=== PATIENT | male | born 1950 | race African-American/Black ===

== ENCOUNTER → 2016-06-19 | Outpatient (CLI) | payer MEDICARE, MEDICAID ==
[~2016-06-19] MED LIST: ALBU8I INH; ALBUAER3 INH; AZIT250T3 PO; BENZ100 PO; BENZ1TAB PO; CELE20TA PO; CITA20 PO; COUG100S2 PO; LEVA500T33 PO; PRED-503 PO; PRED10PA PO; PRED5TAB PO; QUET300 PO; SERO300T PO
[2016-06-19 12:14] LABS: HEMATOCRIT 45.2 % (39.0-51.0); MEAN CELL VOLUME 106.4 FL (80.0-100.0); MEAN CORPUSCULAR HEMOGLOBIN 36.7 PG (27.0-34.0); MEAN CORPUSCULAR HGB CONC 34.5 % (32.0-36.0); PLATELET COUNT 289 TH/MM3 (150-450); RED BLOOD COUNT 4.25 MIL/MM3 (4.50-5.90); RED CELL DISTRIBUTION WIDTH 14.6 % (11.6-17.2); REVIEW FLAG FINAL; WHITE BLOOD COUNT 6.6 TH/MM3 (4.0-11.0)
[2016-06-19 12:38] LABS: ANION GAP 6 MEQ/L (5-15); BICARBONATE 25.2 MEQ/L (21.0-32.0); BLOOD UREA NITROGEN 11 MG/DL (7-18); CHLORIDE 110 MEQ/L (98-107); GLOMERULAR FILTRATION RATE 68 ML/MIN (>89); GLUCOSE,FASTING 96 MG/DL (74-99); SODIUM (NA) 141 MEQ/L (136-145)
[2016-06-19 12:47] LABS: HDL CHOLESTEROL 48.1 MG/DL (40.0-60.0); LDL CHOLESTEROL 149 MG/DL (0-99)
[2016-06-19 12:59] LABS: HEMOGLOBIN A1a 1.1 %; HEMOGLOBIN A1b 0.9 %; HEMOGLOBIN Ao 85.2 %; HEMOGLOBIN F 1.3 %; HEMOGLOBIN P3 3.4 %
== END ==
LOC: CLAB 11:39
DX: E03.9 Hypothyroidism, unspecified (principal); D64.9 Anemia, unspecified; R97.20 Elevated prostate specific antigen [PSA]; E11.9 Type 2 diabetes mellitus without complications; E78.5 Hyperlipidemia, unspecified; Z13.228 Encounter for screening for other metabolic disorders; Z12.5 Encounter for screening for malignant neoplasm of prostate
CPT/HCPCS: 36415; 80048; 80061; 83036; 84443; 85027; G0103

== ENCOUNTER 2016-08-18 14:32 | Emergency (ER) | payer MEDICARE, MEDICAID ==
[~2016-08-18] VITALS: Ht 175.3 cm; Wt 97.5 kg
[~2016-08-18 14:32] MED LIST changes: -ALBUAER3 INH; -AZIT250T3 PO; -BENZ100 PO; -CELE20TA PO; -PRED-503 PO; -PRED10PA PO; -SERO300T PO
[2016-08-18 14:33] VITALS: BP 128/79; PULSE 88; RESP 24; TEMP 98.8; O2SAT 97
[2016-08-18] MEDS ORDERED: SERO300T PO (16:49)
[2016-08-18] MEDS ORDERED: CELE20TA PO (16:49)
[2016-08-18] MEDS ORDERED: BENZ1TAB PO (16:49)
--- NOTE | 2016-08-18 17:09 | PD ---
HPI Chief Complaint: Cold / Flu Symptoms Time Seen by Provider: 17:09 Travel History International Travel<30 days: No Contact w/Intl Traveler<30days: No Traveled to known affect area: No History of Present Illness HPI 65-year-old male presents emergency Department with complaint of subjective fever, cough, nasal congestion since yesterday. Reports hot flashes and chills. Denies ear pain, sore throat. Denies chest pain, shortness of breath. Reports coughing up white phlegm. Denies history of COPD or asthma. Denies wheezing. Has not taken any medications or tried any treatments to alleviate symptoms. No known allergies. No other modifying factors or associated signs and symptoms. PFSH Past Medical History Asthma: No Anxiety: No Depression: No Cancer: No Cardiovascular Problems: No COPD: Yes Diabetes: No Diminished Hearing: No Endocrine: No Genitourinary: No Musculoskeletal: No Neurologic: No Psychiatric: No Respiratory: Yes Schizophrenia: Yes (PARINOID TYPE) Sleep Apnea: No PNEUMOCCOCAL Vaccine (Year): 2 Past Surgical History Tonsillectomy: Yes Social History Alcohol Use: Yes (OCC BEER) Tobacco Use: Yes (1 PPD) Substance Use: No Allergies-Medications (Allergen,Severity, Reaction): Coded Allergies: No Known Allergies (Verified , 08/18/16) Reported Meds & Prescriptions Reported Meds & Active Scripts Active Tessalon Perles (Benzonatate) 100 Mg Cap 100 Mg PO TID PRN Deltasone (Prednisone) 20 Mg Tab 40 Mg PO DAILY 4 Days start 08/19/2016 Proair Hfa 8.5 GM Inh (Albuterol Sulfate) 90 Mcg/Act Aer 2 Puff INH Q4-6H PRN 108 mcg/actuation Reported Celexa (Citalopram Hydrobromide) 20 Mg Tab 20 Mg PO DAILY Seroquel (Quetiapine Fumarate) 300 Mg Tab 300 Mg PO HS Benztropine (Benztropine Mesylate) 1 Mg Tab 1 Mg PO HS Review of Systems Except as stated in HPI: all other systems reviewed are Neg Physical Exam Narrative GENERAL: Well-nourished, well-developed patient, in no acute distress; afebrile , nontoxic-appearing SKIN: Warm and dry. HEAD: Atraumatic. Normocephalic. EYES: Pupils equal and round. No scleral icterus. No injection or drainage. ENT: Mucosa pink and moist. No erythema or exudates. No uvular edema. No uvular , palatal, or tonsillar deviation. Airway patent. Nares without nasal blood, purulent drainage or septal hematoma. EARS: Bilateral pinnae and external canals appear within normal limits. Bilateral tympanic membranes without erythema, dullness or perforation. NECK: Trachea midline. No lymphadenopathy. CARDIOVASCULAR: Regular rate and rhythm. No murmur appreciated. RESPIRATORY: No accessory muscle use. Lungs with Wheezing throughout to auscultation. Breath sounds equal bilaterally. No retractions or tachypnea. No Audible wheezing noted. Consistent moist sounding cough. GASTROINTESTINAL: Abdomen soft, non-tender, nondistended. Hepatic and splenic margins not palpable. Bowel sounds are active 4 quadrants. MUSCULOSKELETAL: No obvious deformities. No clubbing. No cyanosis. No edema. NEUROLOGICAL: Awake and alert. Oriented 3. No obvious cranial nerve deficits. Motor grossly within normal limits. Normal speech. Moves all extremities. 5/5 strength to all extremities. PSYCHIATRIC: Appropriate mood and affect; insight and judgment normal. Data Data Last Documented VS Vital Signs Date Time Temp Pulse Resp B/P Pulse Ox O2 Delivery O2 Flow Rate FiO2 08/18/16 17:38 96 21 08/18/16 14:33 98.8 88 24 128/79 Room Air Orders Chest, Single Ap (08/18/16 17:01) Prednisone (Deltasone) (08/18/16 17:15) Albuterol Neb (Albuterol Neb) (08/18/16 17:15) Influenzae A/B Antigen (08/18/16 17:02) MDM Medical Decision Making Medical Screen Exam Complete: Yes Emergency Medical Condition: Yes Medical Record Reviewed: Yes Differential Diagnosis Bronchitis, influenza, pneumonia Narrative Course 65-year-old male with cough and nasal congestion since yesterday. Lung sounds are with wheezing throughout. The patient is in no acute distress and his oxygen saturation is 96% on room air. He is afebrile and nontoxic-appearing. DuoNeb and prednisone ordered. Chest x-ray ordered. 173: Chest x-ray with no acute pulmonary disease. 175: Patient reports improvement in symptoms after breathing treatment. His lungs are clear and equal throughout. Influenza pending. 180: Influenza negative. Pro-air inhaler, Deltasone, Tessalon Perles prescribed for home. Patient verbalizes understanding and agreement with treatment plan. Patient is medically cleared and stable for discharge. Discussed reasons to return to the emergency department. Instructed patient to follow up with primary care provider. Patient agrees with treatment plan. The patients vital signs are stable and the patient is stable for outpatient follow- up and treatment. Patient discharged home, stable and in no acute distress. Diagnosis Primary Impression: Acute bronchitis Qualified Code: J20.9 - Acute bronchitis, unspecified organism Referrals: Primary Care Physician Patient Instructions: General Instructions Departure Forms: Tests/Procedures Additional Instructions: Use Albuterol inhaler as prescribed Take oral steroids as prescribed and complete full course Use Tessalon Perles as prescribed to decrease coughing spasms [id number] decongestants or antihistamines as directed and as needed for symptom management Your cough can last 4-6 weeks Drink plenty of fluids to prevent dehydration Use hot air humidifier to decrease cough exacerbation Turn off ceiling fans and sleep with head of bed elevated Avoid triggers such as second hand smoke, dust, known allergens Follow-up with your primary care provider Return to the emergency department immediately with worsening of symptoms Med/Other Pt SpecificInfo: Prescription(s) given Scripts Benzonatate (Tessalon Perles)100 Mg [id number] Mg PO TID PRN (COUGH) #20 CAP Ref 0 Prov:Abril Tarango 08/18/16 Prednisone (Deltasone)20 Mg Tab40 Mg PO DAILY 4 Days Ref 0 start 08/19/2016 Prov:Abril Tarango 08/18/16 Albuterol 8.5 GM Inh (Proair Hfa 8.5 GM Inh)90 Mcg/Act Aer2 Puff INH Q4-6H PRN ( SOB/WHEEZING) #1 INHALER Ref 0 108 mcg/actuation Prov:Abril Tarango 08/18/16 Disposition: 01 DISCHARGE HOME Condition: Stable Abril Tarango Aug 18, 2016 17:09
[2016-08-18] MEDS ORDERED: predniSONE 20 MG TAB PO ONE (17:15)
[2016-08-18] MEDS ORDERED: RESP: ALBUTEROL 2.5 MG/3 ML NEB (SCH) INH ONE (17:15)
--- NOTE | 2016-08-18 17:19 | RADRPT ---
EXAM DATE/TIME: 08/18/2016 16:58 [facility] COMPARISON: CHEST SINGLE AP, June 08, 2015, 13:59. INDICATIONS : Cough, congestion MEDICAL HISTORY : Asthma SURGICAL HISTORY : None. ENCOUNTER: Initial ACUITY: 2 days PAIN SCORE: 0/10 LOCATION: Bilateral chest FINDINGS: The lungs are clear without infiltrate, nodule, or mass. There is no appreciable pleural effusion fo r technique. Heart and mediastinum are unremarkable. IMPRESSION: No acute cardiopulmonary disease. Rolly Canales MD on August 18, 2016 at 17:14 Board Certified Radiologist. This report was verified electronically.
[2016-08-18 17:38] VITALS: O2SAT 96
[2016-08-18] MEDS ORDERED: PRED-503 PO (17:45)
[2016-08-18] MEDS ORDERED: ALBUAER3 INH (17:45)
[2016-08-18] MEDS ORDERED: BENZ100 PO (17:45)
== END 2016-08-18 18:16 | disposition home or self-care (01) ==
LOC: NEPK 14:32
DX: J20.9 Acute bronchitis, unspecified (principal); F17.200 Nicotine dependence, unspecified, uncomplicated
CPT/HCPCS: 71010; 87804; 94664; 99283; J7512; J7613

== ENCOUNTER 2016-08-21 20:55 | Emergency (ER) | payer MEDICARE, MEDICAID ==
[~2016-08-21] VITALS: Ht 175.3 cm; Wt 97.0 kg
[~2016-08-21 20:55] MED LIST changes: -ALBU8I INH; +ALBUAER3 INH; +BENZ100 PO; +CELE20TA PO; -CITA20 PO; -COUG100S2 PO; -LEVA500T33 PO; +PRED-503 PO; -PRED5TAB PO; -QUET300 PO; +SERO300T PO
[2016-08-21 20:58] VITALS: BP 135/87; PULSE 91; RESP 18; TEMP 98.7; O2SAT 96
--- NOTE | 2016-08-21 21:27 | PD ---
Physical Exam Time Seen by Provider: 21:23 Narrative 65yo M c/o bronchitis getting worse. Was seen here on the 08/18. Has been taking the steroids, but did not fill the inhaler. Denies chest tightness, chest pain, SOB. C/o "ringing in head." Denies fever. Patient stable. Patient seen in triage. Patient awaiting bed placement. Data Data Last Documented VS Vital Signs Date Time Temp Pulse Resp B/P Pulse Ox O2 Delivery O2 Flow Rate FiO2 08/21/16 20:58 98.7 91 18 135/87 96 Room Air MDM Supervised Visit with JUANITO: Abril Franco Aug 21, 2016 21:27
[2016-08-21] MEDS ORDERED: AZITHROMYCIN 250 MG TAB PO ONE (21:45)
--- NOTE | 2016-08-21 21:46 | PD ---
HPI Chief Complaint: ENT Complaint Time Seen by Provider: 21:40 Travel History International Travel<30 days: No Contact w/Intl Traveler<30days: No Traveled to known affect area: No History of Present Illness HPI This is a 65-year-old male with history of paranoid schizophrenia who presents for evaluation of cough. Symptoms started 4 days ago. Cough is dry, constant. Associated with congestion, sore throat. He was seen here in August 18 and prescribed an albuterol inhaler, Tessalon, prednisone. He had the prednisone filled and he has taken 2 doses of it. He cannot afford the albuterol or the Tessalon. He presents today with the same symptoms. He denies any known history of COPD but he is a long-time smoker. No fevers. No recent travel. No sick contacts. No other complaints. PFSH Past Medical History Asthma: No Anxiety: No Depression: No Cancer: No Cardiovascular Problems: No COPD: Yes Diabetes: No Diminished Hearing: No Endocrine: No Genitourinary: No Musculoskeletal: No Neurologic: No Psychiatric: No Respiratory: Yes Schizophrenia: Yes (PARINOID TYPE) Sleep Apnea: No PNEUMOCCOCAL Vaccine (Year): 2 Past Surgical History Tonsillectomy: Yes Social History Alcohol Use: Yes (OCC BEER) Tobacco Use: Yes (1 PPD) Substance Use: No Allergies-Medications (Allergen,Severity, Reaction): Coded Allergies: No Known Allergies (Verified , 08/18/16) Reported Meds & Prescriptions Reported Meds & Active Scripts Active Prednisone (21) 10 mg tab Dose Pack (Prednisone) 10 Mg Pack 10 Mg PO DIRECTED Azithromycin 250 Mg Tab 250 Mg PO DAILY Tessalon Perles (Benzonatate) 100 Mg Cap 100 Mg PO TID PRN Deltasone (Prednisone) 20 Mg Tab 40 Mg PO DAILY 4 Days start 08/19/2016 Proair Hfa 8.5 GM Inh (Albuterol Sulfate) 90 Mcg/Act Aer 2 Puff INH Q4-6H PRN 108 mcg/actuation Reported Celexa (Citalopram Hydrobromide) 20 Mg Tab 20 Mg PO DAILY Seroquel (Quetiapine Fumarate) 300 Mg Tab 300 Mg PO HS Benztropine (Benztropine Mesylate) 1 Mg Tab 1 Mg PO HS Review of Systems Except as stated in HPI: all other systems reviewed are Neg Physical Exam Narrative GENERAL: Well-developed well-nourished male in no acute distress SKIN: Warm and dry. HEAD: Atraumatic. Normocephalic. EYES: Pupils equal and round. No scleral icterus. No injection or drainage. ENT: No nasal bleeding or discharge. Mucous membranes pink and moist. NECK: Trachea midline. No JVD. CARDIOVASCULAR: Regular rate and rhythm. No murmur appreciated. RESPIRATORY: No accessory muscle use. Audible wheezing bilaterally. No crackles. GASTROINTESTINAL: Abdomen soft, non-tender, nondistended. Hepatic and splenic margins not palpable. MUSCULOSKELETAL: No obvious deformities. No edema. NEUROLOGICAL: Awake and alert. No obvious cranial nerve deficits. Motor grossly within normal limits. Normal speech. PSYCHIATRIC: Appropriate mood and affect; insight and judgment normal. Data Data Last Documented VS Vital Signs Date Time Temp Pulse Resp B/P Pulse Ox O2 Delivery O2 Flow Rate FiO2 08/21/16 20:58 98.7 91 18 135/87 96 Room Air Orders Albuterol-Ipratropium Neb (Duoneb Neb) (08/21/16 21:45) Azithromycin (Zithromax) (08/21/16 21:45) Albuterol Hfa Inh (Proair Hfa Inh) (08/21/16 22:00) Albuterol Hfa Inh (Ventolin Hfa Inh) (08/21/16 22:00) MDM Medical Decision Making Medical Screen Exam Complete: Yes Emergency Medical Condition: Yes Medical Record Reviewed: Yes Differential Diagnosis COPD, reactive airway disease, bronchitis, pneumonia Narrative Course 65-year-old male with persistent wheezing and cough and cold symptoms for the past 4 days. On examination he has wheezing. He is not tachypneic, hypoxic, tachycardic. He is able to ambulate without acute dyspnea. The patient reports that he cannot afford his Tessalon or albuterol inhaler at [facility], he reports that the Tessalon was $35 and the albuterol inhaler was 65. I spoke to the spring encaser informs me that the patient has Medicaid and therefore his medication should be covered. There seems to be a discrepancy in the history. I informed the patient that the Tessalon is on the $4 list at [facility] and albuterol inhaler likely less expensive there is well. We will give the patient lab treatment here as well as an inhaler. I suspect that he may have undiagnosed COPD given his long-standing history of smoking. He will be started on azithromycin, first dose given here. Diagnosis Primary Impression: Acute bronchitis Qualified Code: J20.9 - Acute bronchitis, unspecified organism Additional Instructions: Medication as prescribed. Avoid tobacco products. Follow-up with your primary care physician Dr. Shelton in a few days. Return for any emergent medical conditions. Med/Other Pt SpecificInfo: Prescription(s) given Scripts Prednisone (21) 10 mg tab Dose Pack 10 Mg Pack10 Mg PO DIRECTED #1 DSPK Ref 0 Prov:Lonny Martinez MD 08/21/16 Azithromycin 250 Mg [id number] Mg PO DAILY #4 TAB Ref 0 Prov:Lonny Martinez MD 08/21/16 Disposition: 01 DISCHARGE HOME Condition: Stable Phoenix Hayes Aug 21, 2016 21:46
[2016-08-21] MEDS ORDERED: PRED10PA PO (21:54)
[2016-08-21] MEDS ORDERED: AZIT250T3 PO (21:54)
[2016-08-21] MEDS ORDERED: ALBUTEROL SULFATE 90 MCG/ACT HFA 8 GM INHALER INH ONE (22:00)
[2016-08-21] MEDS ORDERED: ALBUTEROL SULFATE 90 MCG/ACT HFA 18 GM INHALER INH ONE (22:00)
[2016-08-21] MEDS: RESP: ALBUTEROL 2.5 MG/IPRATROPIUM 0.5 MG NEB (SCH) INH (22:03)
== END 2016-08-21 23:01 | disposition home or self-care (01) ==
LOC: NEPK 20:55
DX: J20.9 Acute bronchitis, unspecified (principal); J44.0 Chronic obstructive pulmonary disease with (acute) lower respiratory infection; J02.9 Acute pharyngitis, unspecified; F17.210 Nicotine dependence, cigarettes, uncomplicated
CPT/HCPCS: 94640; 94664; 99283

== ENCOUNTER 2017-01-11 05:31 | Emergency (ER) | payer MEDICARE, MEDICAID ==
[~2017-01-11] VITALS: Ht 175.3 cm; Wt 120.0 kg
[~2017-01-11 05:31] MED LIST changes: +AZIT250T3 PO; +PRED10PA PO
[2017-01-11 05:35] VITALS: BP 131/81; PULSE 95; RESP 24; TEMP 98.5; O2SAT 94
[2017-01-11] MEDS ORDERED: BENZ0.5T PO (05:43)
[2017-01-11] MEDS ORDERED: CLAR500T PO (05:43)
[2017-01-11] MEDS ORDERED: methylPREDNISolone SOD SUCC 125 MG/2 ML VIAL IVP ONE (05:45)
[2017-01-11] MEDS ORDERED: SODIUM CHLORIDE 0.9% FLUSH 10 ML FLUSH IVF PRN (05:45)
[2017-01-11 05:58] VITALS: O2SAT 94
[2017-01-11] MEDS: RESP: ALBUTEROL 2.5 MG/IPRATROPIUM 0.5 MG NEB (SCH) INH (05:58)
[2017-01-11 06:04] LABS: AUTOMATED NEUTROPHIL # 4.5 TH/MM3 (1.8-7.7); BASOPHIL # 0.1 TH/MM3 (0-0.2); BASOPHIL % 0.5 % (0.0-2.0); EOSINOPHIL # 0.1 TH/MM3 (0-0.4); EOSINOPHIL % 0.7 % (0.0-4.0); HEMATOCRIT 45.7 % (39.0-51.0); HEMO FLAGS DIFF FINAL; LYMPH % 43.7 % (9.0-44.0); LYMPHOCYTE # 4.1 TH/MM3 (1.0-4.8); MEAN CELL VOLUME 107.1 FL (80.0-100.0); MEAN CORPUSCULAR HEMOGLOBIN 36.5 PG (27.0-34.0); MEAN CORPUSCULAR HGB CONC 34.1 % (32.0-36.0); MONO % 7.8 % (0.0-8.0); NEUT % 47.3 % (16.0-70.0); PLATELET COUNT 292 TH/MM3 (150-450); RED BLOOD COUNT 4.27 MIL/MM3 (4.50-5.90); WHITE BLOOD COUNT 9.5 TH/MM3 (4.0-11.0)
--- NOTE | 2017-01-11 06:07 | PD ---
HPI . Bronchitis Chief Complaint: Respiratory Symptoms Time Seen by Provider: 05:37 Travel History International Travel<30 days: No Contact w/Intl Traveler<30days: No Traveled to known affect area: No History of Present Illness HPI This patient presents via [facility] with the chief complaint of bronchitis. He reports the onset of symptoms 2 weeks ago. He states that he presents to us now because he has trouble sleeping secondary to coughing. He denies any sputum. He denies fever. He states that he has seen his primary care provider and has been having an antibiotic and inhaler. He reports that he has been using these with no relief of his cough. He was treated en route with Solu-Medrol and albuterol. PFS Past Medical History Asthma: No Anxiety: No Depression: No Cancer: No Cardiovascular Problems: No COPD: Yes Diabetes: No Diminished Hearing: No Endocrine: No Genitourinary: No Musculoskeletal: No Neurologic: No Psychiatric: No Respiratory: Yes Schizophrenia: Yes (PARINOID TYPE) Sleep Apnea: No Influenza Vaccination: Yes PNEUMOCCOCAL Vaccine (Year): 2 Past Surgical History Tonsillectomy: Yes Social History Alcohol Use: Yes (OCC BEER) Tobacco Use: Yes (1 PPD) Substance Use: No Allergies-Medications (Allergen,Severity, Reaction): Coded Allergies: No Known Allergies (Verified , 01/11/17) Reported Meds & Prescriptions Reported Meds & Active Scripts Active Proair Hfa 8.5 GM Inh (Albuterol Sulfate) 90 Mcg/Act Aer 2 Puff INH Q4-6H PRN 108 mcg/actuation Reported Clarithromycin 500 Mg Tab 500 Mg PO BID Benztropine (Benztropine Mesylate) 0.5 Mg Tab 1 Mg PO HS Celexa (Citalopram Hydrobromide) 20 Mg Tab 20 Mg PO DAILY Seroquel (Quetiapine Fumarate) 300 Mg Tab 300 Mg PO HS Review of Systems Except as stated in HPI: all other systems reviewed are Neg General / Constitutional: No: Fever, Chills Respiratory: Positive: Cough Physical Exam Narrative GENERAL: Patient is awake and alert and does not appear to be in any acute distress. SKIN: warm/dry. HEAD: Normocephalic. EYES: Pupils equal and round. No scleral icterus. No injection or drainage. ENT: No nasal bleeding or discharge. Mucous membranes pink and moist. NECK: Trachea midline. Full range of motion without pain.. CARDIOVASCULAR: Regular rate and rhythm. Heart sounds are normal. RESPIRATORY: No accessory muscle use. Diffuse coarse inspiratory and expiratory wheezes. Breath sounds equal bilaterally. GASTROINTESTINAL: Abdomen soft. Nontender. Bowel sounds present. Nondistended. MUSCULOSKELETAL: No obvious deformities. NEUROLOGICAL: Awake and alert. No obvious cranial nerve deficits. Motor grossly within normal limits. Normal speech. PSYCHIATRIC: Appropriate mood and affect; insight and judgment normal. Data Data Last Documented VS Vital Signs Date Time Temp Pulse Resp B/P (MAP) Pulse Ox O2 Delivery O2 Flow Rate FiO2 01/11/17 05:58 94 Nasal Cannula 3.00 01/11/17 05:43 24 01/11/17 05:35 98.5 95 131/81 (98) Orders Orders Complete Blood Count With Diff (01/11/17 05:44) Basic Metabolic Panel (Bmp) (01/11/17 05:44) Iv Access Insert/Monitor (01/11/17 05:44) Ecg Monitoring (01/11/17 05:44) Oximetry (01/11/17 05:44) Chest, Single Ap (01/11/17 05:44) Sodium Chloride 0.9% Flush (Ns Flush) (01/11/17 05:45) Methylprednisolone So Succ Inj (Solumedr (01/11/17 05:45) Albuterol-Ipratropium Neb (Duoneb Neb) (01/11/17 05:45) Labs Laboratory Tests Test 01/11/17 05:50 White Blood Count 9.5 TH/MM3 Red Blood Count 4.27 MIL/MM3 Hemoglobin 15.6 GM/DL Hematocrit 45.7 % Mean Corpuscular Volume 107.1 FL Mean Corpuscular Hemoglobin 36.5 PG Mean Corpuscular Hemoglobin Concent 34.1 % Red Cell Distribution Width 14.0 % Platelet Count 292 TH/MM3 Mean Platelet Volume 7.5 FL Neutrophils (%) (Auto) 47.3 % Lymphocytes (%) (Auto) 43.7 % Monocytes (%) (Auto) 7.8 % Eosinophils (%) (Auto) 0.7 % Basophils (%) (Auto) 0.5 % Neutrophils # (Auto) 4.5 TH/MM3 Lymphocytes # (Auto) 4.1 TH/MM3 Monocytes # (Auto) 0.7 TH/MM3 Eosinophils # (Auto) 0.1 TH/MM3 Basophils # (Auto) 0.1 TH/MM3 CBC Comment DIFF FINAL Differential Comment Blood Urea Nitrogen 5 MG/DL Creatinine 1.06 MG/DL Random Glucose 107 MG/DL Calcium Level 8.6 MG/DL Sodium Level 140 MEQ/L Potassium Level 4.2 MEQ/L Chloride Level 107 MEQ/L Carbon Dioxide Level 25.9 MEQ/L Anion Gap 7 MEQ/L Estimat Glomerular Filtration Rate 84 ML/MIN [facility] Medical Decision Making Medical Screen Exam Complete: Yes Emergency Medical Condition: Yes Medical Record Reviewed: Yes (he has a medical history of schizophrenia and bronchitis) Interpretation(s) EKG shows a sinus rhythm with no ST segment elevation or depression. Differential Diagnosis Differential diagnosis of dyspnea includes but is not limited to congestive heart failure, pneumonia, wheezing, pneumothorax, pulmonary embolism Narrative Course This patient presents complaining with bronchitis. He has diffuse coarse inspiratory and expiratory wheezing. CBC & BMP Diagram 01/11/17 05:50 Calcium Level 8.6 Last Impressions Chest X-Ray 01/11/17 0544 Signed Impressions: Service Date/Time: Wednesday, January 11, 2017 06:14 - CONCLUSION: Slight bibasilar atelectasis. Filemon Wilhelm MD Patient is breathing very comfortably. He is stable for discharge to home. Diagnosis Primary Impression: Acute bronchitis Qualified Codes: J20.9 - Acute bronchitis, unspecified Patient Instructions: Acute Bronchitis (DC), General Instructions Med/Other Pt SpecificInfo: Prescription(s) given Scripts Azithromycin (Zithromax Z-Mat) 250 Mg Dspk 250 MG PO DIRECTED for Infection, #1 DSPK 0 Refills 500 MG (2 tabs) day 1, then 1 tab days 2-5. Prov: Antonietta Helms MD 01/11/17 Prednisone (48) 10 mg tab Dose Pack (Prednisone (48) 10 mg tab Dose Pack) 10 Mg Dspk 10 MG PO DIRECTED for Inflammation, #1 DSPK 0 Refills Prov: Antonietta Helms MD 01/11/17 Disposition: 01 DISCHARGE HOME Condition: Stable Antonietta Helms MD Jan 11, 2017 06:07
--- NOTE | 2017-01-11 06:24 | RADRPT ---
EXAM DATE/TIME: 01/11/2017 06:14 [facility] COMPARISON: No previous studies available for comparison. INDICATIONS : Shortness of breath. MEDICAL HISTORY : Chronic obstructive pulmonary disease. Asthma. SURGICAL HISTORY : None. ENCOUNTER: Initial ACUITY: 3 weeks PAIN SCORE: 0/10 LOCATION: Bilateral chest FINDINGS: Very mild patchy atelectasis seen at both bases. No pleural effusion. No pneumothorax. Heart size sta ble, within normal limits. CONCLUSION: Slight bibasilar atelectasis. Filemon Wilhelm MD on January 11, 2017 at 6:22 Board Certified Radiologist. This report was verified electronically.
[2017-01-11 06:35] LABS: BICARBONATE 25.9 MEQ/L (21.0-32.0); POTASSIUM 4.2 MEQ/L (3.5-5.1)
[2017-01-11] MEDS ORDERED: ZITHTAB PO (06:45)
[2017-01-11] MEDS ORDERED: PRED10PA2 PO (06:45)
--- NOTE | 2017-01-11 09:32 | EKG ---
Date Performed: 01/11/2017 Time Performed: 05:36:22 PTAGE: 66 years EKG: Sinus rhythm Compared to prior tracing no significant change NORMAL ECG PREVIOUS TRACING : 06/08/2015 15.26 DOCTOR: Frandy Zazueta Interpretating Date/Time 01/11/2017 09:30:14
== END 2017-01-11 09:42 | disposition home or self-care (01) ==
LOC: NEPE 05:31
DX: J44.0 Chronic obstructive pulmonary disease with (acute) lower respiratory infection (principal); J20.9 Acute bronchitis, unspecified; J98.11 Atelectasis; F17.200 Nicotine dependence, unspecified, uncomplicated; Z79.899 Other long term (current) drug therapy
CPT/HCPCS: 71010; 80048; 85025; 93005; 94640; 94664; 99285